=== PATIENT | male | born 2000 | race Caucasian/White ===

== ENCOUNTER 2021-09-15 20:18 | Emergency (ER) | payer OTHER ==
[2021-09-15 20:30] VITALS: BP 112/62; PULSE 82; TEMP 98.1; BMI 27.4
[2021-09-15] MEDS ORDERED: KETOROLAC TROMETHAMINE 30 MG/1 ML VIAL IVPUSH ONE (21:00)
[2021-09-15] MEDS ORDERED: KETOROLAC TROMETHAMINE 30 MG/1 ML VIAL ONE (21:20)
[2021-09-15 21:23] LABS: BASO % 0.7 % (0-2.0); EOS % 8.9 % (0-4.5); HEMATOCRIT 41.3 % (35.4-49); HEMOGLOBIN 14.5 GM/dL (11.7-16.9); LYMPH % 21.5 % (8-40); MCH 30.2 pg (25.7-33.7); MCHC 35.1 g/dl (32.0-35.9); MEAN PLT VOLUME 7.8 fl (7.5-11.1); MONO % 8.4 % (3.8-10.2); NEUT % 60.5 % (42.8-82.8); PLATELET COUNT 313 10^3/uL (134-434); WHITE BLOOD COUNT 6.9 K/mm3 (4.0-10.0)
[2021-09-15 21:42] LABS: CALCIUM 9.2 mg/dL (8.5-10.1)
[2021-09-15 21:43] LABS: BLOOD UREA NITROGEN 7.5 mg/dL (7-18)
[2021-09-15 21:46] LABS: CREATININE 0.9 mg/dL (0.55-1.3)
== END 2021-09-16 00:16 | disposition home or self-care (01) ==
LOC: JER 20:18 → JERFT 20:18 → JER 09-16 00:16
PROC: 3E0333Z Introduction of Anti-inflammatory into Peripheral Vein, Percutaneous Approach (ICD-10-PCS; principal; 2021-09-15)
DX: S20.212A Contusion of left front wall of thorax, initial encounter (principal); W22.8XXA Striking against or struck by other objects, initial encounter; Y93.67 Activity, basketball
CPT/HCPCS: 36415; 71101-TC-LT-FY; 74177-TC; 80048; 85025; 99285-25

== ENCOUNTER 2021-09-17 21:28 | Emergency (ER) | payer OTHER ==
[2021-09-17 21:33] VITALS: BP 107/64; PULSE 63; TEMP 98.6; BMI 27.4
[2021-09-17] MEDS ORDERED: LACTULOSE 20 GM/30 ML UDC (FOR ORAL USE ONLY) PO ONE (21:57)
[2021-09-17] MEDS ORDERED: LIDOCAINE PATCH REMOVAL MC SCH (22:00)
[2021-09-17] MEDS ORDERED: METHOCARBAMOL 500 MG TABLET PO ONE (22:03)
[2021-09-17] MEDS ORDERED: LIDOCAINE 5% TOPICAL PATCH TP ONE (22:05)
[2021-09-17] MEDS ORDERED: IBUPROFEN 600 MG TABLET (FP) PO ONE (22:05)
[2021-09-17] MEDS ORDERED: LIDOCAINE 5% TOPICAL PATCH ONE (22:07)
[2021-09-17] MEDS ORDERED: METHOCARBAMOL 500 MG TABLET ONE (22:07)
[2021-09-17] MEDS ORDERED: FAMOTIDINE 20 MG TABLET PO ONE (22:07)
[2021-09-17] MEDS ORDERED: LACTULOSE 20 GM/30 ML UDC (FOR ORAL USE ONLY) ONE (22:07)
[2021-09-17] MEDS ORDERED: FAMOTIDINE 20 MG TABLET ONE (22:08)
== END 2021-09-17 22:50 | disposition home or self-care (01) ==
LOC: JER 21:28
DX: S20.212A Contusion of left front wall of thorax, initial encounter (principal); M62.838 Other muscle spasm; W22.8XXA Striking against or struck by other objects, initial encounter
CPT/HCPCS: 99283-25

== ENCOUNTER 2022-03-19 18:09 | Emergency (ER) | payer OTHER ==
[2022-03-19 18:14] VITALS: BP 123/71; PULSE 93; RESP 18; TEMP 97; BMI 25.0
[2022-03-19] MEDS ORDERED: LIDOCAINE 5% TOPICAL PATCH TP ONE (20:47)
[2022-03-19] MEDS ORDERED: METHOCARBAMOL 500 MG TABLET PO ONE (20:47)
[2022-03-19] MEDS ORDERED: KETOROLAC TROMETHAMINE 30 MG/1 ML VIAL IM ONE (20:47)
[2022-03-19] MEDS ORDERED: LIDOCAINE 5% TOPICAL PATCH ONE (20:59)
[2022-03-19] MEDS ORDERED: METHOCARBAMOL 500 MG TABLET ONE (21:00)
[2022-03-19] MEDS ORDERED: KETOROLAC TROMETHAMINE 30 MG/1 ML VIAL ONE (21:00)
[2022-03-19] MEDS ORDERED: LIDOCAINE PATCH REMOVAL MC SCH (22:00)
== END 2022-03-19 21:46 | disposition home or self-care (01) ==
LOC: JERFT 18:09
PROC: 3E023GC Introduction of Other Therapeutic Substance into Muscle, Percutaneous Approach (ICD-10-PCS; principal; 2022-03-19)
DX: M43.6 Torticollis (principal)
CPT/HCPCS: 99284-25